=== PATIENT | male | born 1980 | race Caucasian/White ===

== ENCOUNTER 2019-04-28 15:46 | Day surgery (SDC) | payer OTHER, SELFPAY ==
[2019-04-28] MEDS ORDERED: Morphine 4 MG/ML VIAL ONE (16:05)
[2019-04-28] MEDS ORDERED: Ondansetron PF 4 MG/2 ML Vial ONE ×2 (16:05→16:06)
[2019-04-28 16:13] LABS: #Basophils 0.1 thou/uL (0.0-0.2); #Lymphocytes 1.3 thou/uL (1.20-3.40); #Monocytes 1.1 thou/uL (0.11-0.59); #Neutrophils 12.5 thou/uL (1.40-6.50); %Basophils 0.7 % (0.0-1.0); %Eosinophils 0.2 % (0.0-10.0); %Lymphocytes 8.7 % (21.0-51.0); %Monocytes 7.1 % (0.0-10.0); %Neutrophils 83.4 % (42.0-75.0); Hemoglobin 16.7 g/dL (14.0-18.0); Mean Corpuscular HGB CONC 33.1 g/dL (32.0-36.0); Mean Corpuscular Hemoglobin 29.3 pg (27.0-31.0); Mean Corpuscular Volume 88.6 fL (78.0-98.0); Mean Platelet Volume 5.7 fL (7.4-10.4); Platelet Count 331 thou/uL (130-400); RBC Distribution Width 12.7 % (11.5-14.5); White Blood Cell (WBC) Count 14.9 thou/uL (4.8-10.8)
[2019-04-28] MEDS ORDERED: Glycopyrrolate 0.2 MG/ML 5 ML SYRINGE ONE (16:22)
[2019-04-28] MEDS ORDERED: Ketorolac Tromethamine 30 MG/ML VIAL ONE (16:22)
[2019-04-28] MEDS ORDERED: PROPOFOL 200 MG/20 ML VIAL ONE (16:22)
[2019-04-28] MEDS ORDERED: Rocuronium Bromide 10 MG/ML (10ML VIAL) ONE (16:22)
[2019-04-28] MEDS ORDERED: Lidocaine 1% PF 5 ML VIAL ONE (16:22)
[2019-04-28 16:36] LABS: ALT (SGPT) 43 U/L (8-55); Albumin 4.6 g/dL (3.5-5.0); Alkaline Phosphatase 60 U/L (40-150); Anion Gap 20 mmol/L (10-20); BUN (Urea Nitrogen) 11 mg/dL (8.9-20.6); CK (CPK) 88 U/L (30-200); Calc. Creatinine Clearance 0 mL/min (70-130); Calcium 9.4 mg/dL (7.8-10.44); Carbon Dioxide 20 mmol/L (22-29); Chloride 106 mmol/L (98-107); Estimated GFR-MDRD 79; Glucose 110 mg/dL (70-105); Lipase 15 U/L (8-78); Sodium 140 mmol/L (136-145)
[2019-04-28 16:57] LABS: AST (SGOT) 20 U/L (5-34); Globulin 2.6 g/dL (2.4-3.5); Potassium 3.9 mmol/L (3.5-5.1); Protein, Total 7.2 g/dL (6.0-8.3)
--- NOTE | 2019-04-28 17:12 | CT ---
CT ABDOMEN NONCONTRAST CT PELVIS NONCONTRAST: (Urolithiasis protocol) DATE: 04/28/2019 HISTORY: 38-year-old male with periumbilical abdominal pain COMPARISON: None available TECHNIQUE: IV injection of iodinated contrast media: None Oral contrast media: None FINDINGS: Other than for urolithiasis, the lack of IV and oral contrast limits the evaluation. The appendix is diffusely thickened, up to 12 mm caliber. Little or no periappendiceal fat stranding. No abscess, ascites, or pneumoperitoneum. A 2.5 x 2 x 1.5 cm well-circumscribed mass exophytically protrudes laterally from the right renal mid pole cortex, with density of 25 Hounsfield units. Punctate 2 mm calculus at a right renal midpole calyx. No calculus in left kidney, bilateral ureters, or urinary bladder. No hydronephrosis. No colonic diverticulitis or small bowel dilation. Within the limits of a noncontrast scan, no pathology identified involving abdominal aorta, pancreas, adrena ls, liver, or spleen. Lung bases are clear. No pleural effusion.. IMPRESSION: 1) probable mild, early acute appendicitis. 2) minimal nephrolithiasis consisting of a single tiny right renal calculus. No obstructive uropathy. 3) pedunculated, exophytic 2.5 cm right renal mass. The differential diagnosis for this is hemorrhagi c renal cyst versus solid neoplasm. On an elective basis, recommend MRI abdomen with and without contrast.
[2019-04-28] MEDS ORDERED: Sodium Chloride 0.9% 100 ML ONE (17:26)
[2019-04-28] MEDS ORDERED: Piperacillin/Tazobactam 3.375 GM VIAL ONE (17:26)
[2019-04-28] MEDS ORDERED: Bupivacaine 0.25% HCL 30 ML VIAL ONE (18:01)
[2019-04-28] MEDS ORDERED: Bupivacaine/Epinephrine 0.25% 30 ML VIAL ONE (18:02)
[2019-04-28 18:14] LABS: Bilirubin Negative (Negative); Blood, Urine Negative (Negative); Clarity Clear (Clear); Glucose, Urine (Dipstick) Negative (Negative); Leukocyte Negative (Negative); Nitrite Negative (Negative); Protein, Urine (Dipstick) Negative (Neg-Trace); Urobilinogen 0.2 mg/dL (Less than 2)
[2019-04-28] MEDS ORDERED: Fentanyl 100 MCG/2 ML VIAL ONE (18:47)
[2019-04-28] MEDS ORDERED: Midazolam HCl 2 mg/2 ml Vial ONE (18:55)
[2019-04-28] MEDS ORDERED: Fentanyl 250 MCG/5 ML VIAL ONE (18:55)
--- NOTE | 2019-04-28 20:36 | OP ---
DATE OF PROCEDURE: 04/28/2019 PREOPERATIVE DIAGNOSIS: Acute appendicitis. POSTOPERATIVE DIAGNOSIS: Acute appendicitis. PROCEDURE PERFORMED: Laparoscopic appendectomy. ANESTHESIA: General. ESTIMATED BLOOD LOSS: Minimal. COMPLICATIONS: None. SPECIMENS: Appendix. FINDINGS: Appendicitis. DESCRIPTION OF PROCEDURE: The patient was taken to the operating room and laid supine on the operating room table. After general anesthetic was obtained, a Sam was placed. The abdomen was shaved, prepped, and draped in a sterile fashion. A curved incision was made below the umbilicus. Cautery was dissected down to and scored the fascia. Abdominal cavity was entered bluntly using a Vanessa clamp. Holding stitch of PDS was placed on each side of the fascia. Delmar trocar was placed. High-flow pneumoperitoneum was obtained. A suprapubic 5 mm port and left lower quadrant 5 mm port were placed in direct visualization. Cecum was rolled over to reveal acute appendicitis. A window was made at the base of the appendix. Laparoscopic stapler was fired across the base of the appendix. A vascular reload was fired across the mesoappendix. Appendix was placed in EndoCatch bag and brought out through the Delmar. A small bleeder on the staple line was cauterized. There was no ongoing bleeding. The right lower quadrant and pelvis were irrigated using sterile solution. No injury to any intraabdominal structures. All port sites were infiltrated using local anesthetic. All ports were removed under camera visualization without bleeding. Pneumoperitoneum was let down. PDS was used to close the fascial defect below the umbilicus. All incisions were irrigated and closed using 4-0 Monocryl and Dermabond. The patient was sent to Recovery in stable condition. All instrument counts, needle counts, and lap counts were correct. Job ID: [id number]
--- NOTE | 2019-04-29 00:59 | HP ---
CHIEF COMPLAINT: Abdominal pain. HISTORY OF PRESENT ILLNESS: This is a 38-year-old male with a history of acute onset of severe mid epigastric pain, this afternoon began to migrate down towards the right lower quadrant. It is described as sharp 8/10. Does not radiate, associated with nausea and vomiting. No change in stools. No history of inflammatory bowel disease. No previous abdominal surgery. CT scan [facility] reveals acute appendicitis. PAST MEDICAL HISTORY: Hypertension. PAST SURGICAL HISTORY: Knee surgery. MEDICATIONS: Lisinopril. ALLERGIES: NO KNOWN DRUG ALLERGIES. SOCIAL HISTORY: No smoking, alcohol, or other drugs. He is . REVIEW OF SYSTEMS: Ten-system review of systems is otherwise negative unless described above. PHYSICAL EXAMINATION: HEENT: Sclerae anicteric. Oropharynx clear. NECK: No lymphadenopathy. CHEST: Clear. HEART: Regular rate and rhythm. ABDOMEN: Soft, tender to right lower quadrant with localized guarding. No rebound. No abdominal hernias. No ischemia or edema to extremities. LABORATORY DATA: White blood cell count is 14, hemoglobin 16. Sodium 140, potassium 3.9, creatinine 1.05. ASSESSMENT: CT scan shows acute appendicitis. PLAN: Laparoscopic appendectomy. Risks, benefits, and alternatives were discussed. He gives consent. We will do this today. Job ID: [id number]
== END 2019-04-28 20:50 | disposition home or self-care (01) ==
LOC: SCSER 15:46 → SDC/OP 18:53
PROVIDERS: ATTEND Surgery
PROC: 0DTJ4ZZ Resection of Appendix, Percutaneous Endoscopic Approach (ICD-10-PCS; principal; 2019-04-28)
DX: K35.80 Unspecified acute appendicitis (principal); I10 Essential (primary) hypertension; N20.0 Calculus of kidney
CPT/HCPCS: 74176; 80053; 81003; 82550; 83605; 83690; 84484; 85025; 88304; 93005; J1170; J2250; J2270; J2405; J2543; J3010; J3490; S0020